=== PATIENT | male | born 1955 | race Caucasian/White ===

== ENCOUNTER 2023-06-21 08:48 | Day surgery (SDC) | payer MEDICARE, BC ==
[2023-06-16 12:05] LABS: BASOPHILS % (AUTO) 0.5 % (0-1); EOSINOPHILS % (AUTO) 0.8 % (0-6); LYMPHOCYTES # (AUTO) 1.1 X10'3 (1.1-4.8); LYMPHOCYTES % (AUTO) 26.1 % (21-51); MEAN CORPUSCULAR HEMOGLOBIN 28.8 PG (27.0-31.0); MEAN CORPUSCULAR HGB CONC 33.9 g/dL (33.0-36.5); MEAN PLATELET VOLUME 7.3 FL (7.4-10.4); MONOCYTES # (AUTO) 0.5 X10'3 (0-0.9); MONOCYTES % (AUTO) 11.1 % (2-12); NEUTROPHILS # (AUTO) 2.6 X10'3 (1.8-7.7); NEUTROPHILS % (AUTO) 61.5 % (42-75); PRE OP HEMATOCRIT 45.5 % (42.0-52.0); PRE OP HEMOGLOBIN 15.4 g/dL (14.0-17.9); PRE OP PLATELET COUNT 155 X10'3 (140-440); PRE OP WHITE BLOOD COUNT 4.3 10'3 (4.8-10.8); RED BLOOD COUNT 5.35 X10'6 (4.70-6.10); RED CELL DISTRIBUTION WIDTH 13.5 % (11.5-14.5)
[2023-06-16 12:21] LABS: ALBUMIN 3.7 G/DL (3.4-5.0); ALKALINE PHOSPHATASE 85 IU/L (46-116); BLOOD UREA NITROGEN 23 MG/DL (7-18); BUN/CREATININE RATIO 20.2 (10.0-20.0); CALCIUM 9.5 MG/DL (8.5-10.1); CHLORIDE 104 MMOL/L (99-107); CREATININE 1.14 MG/DL (0.60-1.10); PRE OP ALT 39 U/L (30-65); PRE OP ANION GAP 4 (8-16); PRE OP AST 25 U/L (10-37); PRE OP GLUCOSE 90 MG/DL (70-104); PRE OP POTASSIUM 4.4 MMOL/L (3.4-5.1); PRE OP SODIUM 139 MMOL/L (135-145); TOTAL CARBON DIOXIDE 31.5 MMOL/L (24-32); TOTAL PROTEIN 7.4 G/DL (6.4-8.2); eGFR 64 ML/MIN
[~2023-06-21] VITALS: Ht 177.8 cm; Wt 81.6 kg
[2023-06-21] VITALS (7 sets, daily range): BP systolic 105–121; BP diastolic 68–73; PULSE 46–69; RESP 8–16; TEMP 97.5; O2SAT 96–100
[~2023-06-21 08:48] MED LIST: BUPIVAcaine/PF 2.5mg/ml (0.25%) 10ml vial ONE; D3; FLO0.4C PO; LIDOcaine 0.5% (5mg/ml) 50ml vial ONE; PRAM0.5T12 PO; TURMERIC; ZINC; cefazolin 2gm/D5W 100mL 100 ML IV ONE; famotidine 20mg tablet PO ONE; ringers solution, lacted 1,000 ML IV SCH
[2023-06-21] MEDS ORDERED: fentaNYL/PF 50MCG/1 ML 2ML syringe ONE (10:19)
[2023-06-21] MEDS ORDERED: midazolam 1 mg/ML 2ml injection ONE (10:19)
[2023-06-21] MEDS ORDERED: proCHLORperazine 10 MG/2 ml inj IV PRN (10:30)
[2023-06-21] MEDS ORDERED: meperidine/PF 25mg/ml syringe IV PRN ×3 (10:30)
[2023-06-21] MEDS ORDERED: ringers solution, lacted 1,000 ML IV SCH (10:30)
[2023-06-21] MEDS ORDERED: morphine 4 MG/ML inj SYRINge IV PRN (10:30)
[2023-06-21] MEDS ORDERED: morphine 2 MG/ML inj. syringe IV PRN (10:30)
[2023-06-21] MEDS ORDERED: ondansetron/PF 4mg/2ml inj IV PRN (10:30)
[2023-06-21] MEDS ORDERED: BUPIVAcaine/PF 2.5mg/ml (0.25%) 10ml vial IJ ONE (11:00)
[2023-06-21] MEDS ORDERED: propofol inj 20 ML IV ONE (11:12)
--- NOTE | 2023-06-21 11:25 | NUR ---
Received from OR via [facility] IN STABLE CONDITION, accompanied by Anesthesiologist and AUTOMATED ACCESS SYSTEMS TECHNICIAN report given by AUTOMATED ACCESS SYSTEMS TECHNICIAN AND Anesthesiolgist. Addendum: 06/21/23 at 1230 by Sary Carrillo RN Amended: Links added.
[2023-06-21] MEDS ORDERED: glycopyrrolate 0.2mg/ml inj ONE (11:26)
--- NOTE | 2023-06-21 12:25 | NUR ---
PATIENT DISCHARGED FROM PACU IN STABLE CONDITION AFTER VERBAL AND WRITTEN DISCHARGE INSTRUCTIONS GIVEN. PATIENT GAVE VERBAL UNDERSTANDING OF INSTRUCTIONS GIVEN. PATIENT LEFT FACILITY VIA WHEELCHAIR WITH RN. Addendum: 06/21/23 at 1230 by Sary Carrillo RN Amended: Links added.
== END 2023-06-21 12:25 | disposition home or self-care (01) ==
LOC: PAS 08:48
PROVIDERS: ATTEND Orthopaedic Surgery Hand Surgery
DX: M72.0 Palmar fascial fibromatosis [Dupuytren] (principal); N40.0 Benign prostatic hyperplasia without lower urinary tract symptoms; G25.81 Restless legs syndrome; Z98.890 Other specified postprocedural states; Z79.899 Other long term (current) drug therapy; Z72.89 Other problems related to lifestyle; Z82.49 Family history of ischemic heart disease and other diseases of the circulatory system
CPT/HCPCS: 26123; 36415; 80053; 82948; 85025; A6222; J0690; J2250; J2704; J3010; J3490; J7030; J7120; Z7506; Z7512; A4215; A4618; A6449; A7000